=== PATIENT | male | born 1970 | race Caucasian/White ===

== ENCOUNTER 2020-10-29 20:22 | Emergency (ER) | payer OTHER ==
[~2020-10-29] VITALS: Ht 175.3 cm; Wt 98.6 kg
[2020-10-29] MEDS ORDERED: IBUP200T45 PO (20:51)
[2020-10-29 21:18] LABS: BASO % 0.2 % (0.0-1.0); EOS % 0.2 % (0.0-3.0); HEMOGLOBIN 16.7 g/dl (13.5-17.5); LYMPH # 1.6 10^3/uL (1.5-5.0); LYMPH % 17.5 % (24.0-44.0); MEAN CORPUSCULAR HEMOGLOBIN 29.4 pg (27.0-33.0); MEAN CORPUSCULAR HGB CONC 32.7 g/dl (32.0-36.5); MEAN CORPUSCULAR VOLUME 89.8 fl (80.0-96.0); MONO # 0.4 10^3/uL (0.0-0.8); MONO % 4.5 % (2.0-8.0); NEUTROPHILS # 6.9 10^3/uL (1.5-8.5); NEUTROPHILS % 77.5 % (36.0-66.0); PLATELET COUNT, AUTOMATED 154 10^3/uL (150-450); RED BLOOD COUNT 5.68 10^6/uL (4.30-6.10); WHITE BLOOD COUNT 8.9 10^3/uL (4.0-10.0)
[2020-10-29 21:39] LABS: OSMOLALITY SERUM 298 MOSM/KG (275-295)
[2020-10-29 21:40] LABS: BLOOD UREA NITROGEN 34 MG/DL (7-18); CARBON DIOXIDE LEVEL 27 MEQ/L (21-32); CHLORIDE LEVEL 107 MEQ/L (98-107); CREATININE FOR GFR 1.03 MG/DL (0.70-1.30); GLOMERULAR FILTRATION RATE > 60.0 (>60); GLUCOSE, FASTING 92 MG/DL (70-100); POTASSIUM SERUM 3.9 MEQ/L (3.5-5.1); SODIUM LEVEL 142 MEQ/L (136-145)
[2020-10-29 21:41] LABS: ALBUMIN 4.4 GM/DL (3.2-5.2); ALT/SGPT 78 U/L (12-78); BILIRUBIN,TOTAL 0.5 MG/DL (0.2-1.0); CALCIUM LEVEL 9.1 MG/DL (8.5-10.1); CK-MB VALUE MASS 1.8 NG/ML (<3.6); CPK CREATINE PHOSPHOKINASE 195 U/L (39-308); MB/CK RELATIVE INDEX 0.92 (< OR =4); TOTAL PROTEIN 7.7 GM/DL (6.4-8.2)
[2020-10-29 22:19] LABS: APPEARANCE, URINE CLEAR (CLEAR); BACTERIA, URINE AUTO NEGATIVE (NEGATIVE); BILIRUBIN, URINE AUTO NEGATIVE (NEGATIVE); BLOOD, URINE BLOOD NEGATIVE (NEGATIVE); COLOR, URINE YELLOW (YELLOW); GLUCOSE, URINE (UA) AUTO NEGATIVE (NEGATIVE); KETONE, URINE AUTO NEGATIVE (NEGATIVE); LEUKOCYTE ESTERASE, URINE AUTO NEGATIVE (NEGATIVE); MUCUS, URINE SMALL (NEGATIVE); NITRITE, URINE AUTO NEGATIVE (NEGATIVE); PROTEIN, URINE AUTO NEGATIVE (NEGATIVE); RBC, URINE AUTO 0 /HPF (0-3); SPECIFIC GRAVITY URINE AUTO 1.017 (1.002-1.035); SQUAMOUS EPITHELIAL CELL UR AU 0 /HPF (0-6); UROBILINOGEN, URINE AUTO 0.2 mg/dL (0.0-2.0); WBC, URINE AUTO 1 /HPF (0-3)
[2020-10-29 23:30] VITALS: BP 113/59
--- NOTE | 2020-10-30 16:31 | ECGEPIP ---
[facility] - ED Test Date: 2020-10-29 Pat Name: TYLER RENTERIA Department: Room: - Gender: Male [employer]: MARCELINA : 1970 Requested By: ZAYDA SCHUMACHER Order Number: [id number] Reading MD: Zayda Joshi Measurements Intervals Weir Rate: 65 P: 40 NH: 146 QRS: -14 QRSD: 92 T: -9 QT: 402 QTc: 418 Interpretive Statements Normal sinus rhythm Baseline artifact Comparison tracing not on file Electronically Signed on 10-30-2020 16:31:32 EST by Zayda Joshi
== END 2020-10-29 23:45 | disposition home or self-care (01) ==
LOC: M ED 20:22
DX: Z71.1 Person with feared health complaint in whom no diagnosis is made (principal); Z87.820 Personal history of traumatic brain injury; Z91.013 Allergy to seafood